=== PATIENT | female | born 1995 | race Two or more races ===

== ENCOUNTER 2017-01-25 10:55 | Emergency (ER) | payer MEDICAID, OTHER ==
[~2017-01-25] VITALS: Ht 157.5 cm; Wt 68.0 kg
[2017-01-25 13:11] VITALS: BP 128/84
[2017-01-25] MEDS ORDERED: ONDANSETRON ODT 4 MG TAB PO ONE (13:30)
== END 2017-01-25 13:34 | disposition home or self-care (01) ==
LOC: EDBD 10:55 → ER 10:55
DX: S00.83XA Contusion of other part of head, initial encounter (principal); Y08.89XA Assault by other specified means, initial encounter; Y93.89 Activity, other specified; Y99.8 Other external cause status; Y92.89 Other specified places as the place of occurrence of the external cause
CPT/HCPCS: 70450; 70486; 99284; Q0162